=== PATIENT | male | born 2000 | race Two or more races ===

== ENCOUNTER 2020-05-17 00:18 | Emergency (ER) | payer OTHER ==
[~2020-05-17] VITALS: Ht 175.3 cm; Wt 105.2 kg
[2020-05-17] MEDS ORDERED: INTESTINEX680 M2 PO (04:38)
[2020-05-17] MEDS ORDERED: KETO10TA2 PO (04:38)
[2020-05-17] MEDS ORDERED: AMOX-CLAV 875-1 EACH PO (04:38)
== END 2020-05-17 04:55 | disposition home or self-care (01) ==
LOC: ER 00:18
DX: S61.250A Open bite of right index finger without damage to nail, initial encounter (principal); W54.0XXA Bitten by dog, initial encounter; Y93.89 Activity, other specified; Y92.098 Other place in other non-institutional residence as the place of occurrence of the external cause; Y99.8 Other external cause status